=== PATIENT | female | born 1955 | race Caucasian/White ===

== ENCOUNTER 2018-06-28 07:50 | Emergency (ER) | payer OTHER ==
[~2018-06-28] VITALS: Ht 165.1 cm; Wt 127.0 kg
[2018-06-28 08:44] LABS: Urine Bacteria MANY /hpf (None Seen); Urine Blood 2+ /uL (Negative); Urine Mucus FEW (None Seen); Urine Specific Gravity 1.021 (1.001-1.035); Urine WBC 53 /hpf (0 - 5)
[2018-06-28 08:45] LABS: Basophils # (auto) 0.1 uL; Basophils % (auto) 1.4 % (0.0-2.0); Eosinophils # (auto) 0.2 uL; Eosinophils % (auto) 2.6 % (0.0-7.0); Hematocrit 42.8 % (36.0-46.0); Hemoglobin 14.3 g/dL (12.2-16.2); Lymphocytes # (auto) 1.2 uL; Lymphocytes % (auto) 15.4 % (10.0-50.0); Mean Corpuscular Hemoglobin 28.1 pg (28.0-32.0); Mean Corpuscular Hgb Conc. 33.4 g/dL (32.0-36.0); Monocytes # (auto) 0.6 uL; Monocytes % (auto) 7.8 % (0.0-12.0); Neutrophils # (auto) 5.5 uL; Neutrophils % (auto) 72.8 % (37.0-80.0); Nucleated Red Blood Cells % 0.1 %; Platelet Count (auto) 325 10^3/uL (140-450); Red Blood Cells 5.09 10^6/uL (4.0-5.20); Red Cell Distribution Width 15.2 % (11.8-14.3); White Blood Cell 7.6 10^3/uL (4.4-10.8)
[2018-06-28 09:12] LABS: Albumin 3.6 g/dL (3.4-5.0); BUN/Creatinine Ratio 19.1; Potassium 3.9 mmol/L (3.5-5.1)
[2018-06-28 09:15] LABS: Bilirubin, Total 0.4 mg/dL (0.2-1.0); Total Protein 7.9 g/dL (6.4-8.2)
[2018-06-28 09:43] VITALS: BP 126/73
[2018-06-28] MEDS ORDERED: LIDOCAINE W/ EPINEPHRINE 1 % INJ 30ML ONE (09:56)
[2018-06-28] MEDS ORDERED: cefTRIAXone SOD 1,000 MG VL IM ONE (10:00)
[2018-06-28] MEDS ORDERED: KETOROLAC TROMETH 60MG/2ML VIAL IM ONE (10:00)
[2018-06-29] MEDS ORDERED: OME20GT PO (09:24)
[2018-06-29] MEDS ORDERED: ESCI20TA PO (09:24)
[2018-06-29] MEDS ORDERED: HYDR12.56 PO (09:24)
[2018-06-29] MEDS ORDERED: LOSA-49 PO (09:24)
== END 2018-06-28 10:33 | disposition home or self-care (01) ==
LOC: ER 07:50
DX: N13.2 Hydronephrosis with renal and ureteral calculous obstruction (principal); N39.0 Urinary tract infection, site not specified; I10 Essential (primary) hypertension; G89.29 Other chronic pain; Z87.440 Personal history of urinary (tract) infections; Z90.49 Acquired absence of other specified parts of digestive tract; Z90.710 Acquired absence of both cervix and uterus
CPT/HCPCS: 36415; 74176; 80053; 81001; 85025; 93005; 96372; 99284; J0696; J1885; J2001

== ENCOUNTER 2018-07-04 16:27 | Inpatient (IN) | payer BC ==
[~2018-07-04] VITALS: Ht 165.1 cm; Wt 143.9 kg
[~2018-07-04 16:27] MED LIST: ESCI20TA PO; HYDR12.56 PO; LOSA-49 PO; OME20GT PO
[2018-07-04] MEDS ORDERED: IPRATROPIUM BROM 0.5 MG/2.5ML INH SOL HHN ONE (17:00)
[2018-07-04] MEDS ORDERED: ALBUTEROL SULF 2.5 MG/0.5ML(0.5%) NEB SOLN HHN ONE (17:00)
[2018-07-04] MEDS ORDERED: KETOROLAC TROMETH 30 MG/ML 1ML VIAL IV ONE (17:00)
[2018-07-04] MEDS ORDERED: methylPREDNISolone SOD SUCC 125 MG/2 ML VL IV ONE (17:00)
[2018-07-04] MEDS ORDERED: ACETAMINOPHEN 325 MG TAB PO ONE (17:45)
[2018-07-04 18:20] LABS: Basophils # (auto) 0 uL; Basophils % (auto) 0.8 % (0.0-2.0); Eosinophils # (auto) 0 uL; Eosinophils % (auto) 0.2 % (0.0-7.0); Hematocrit 39.8 % (36.0-46.0); Hemoglobin 13.2 g/dL (12.2-16.2); Lymphocytes # (auto) 0.8 uL; Mean Corpuscular Hemoglobin 28.3 pg (28.0-32.0); Mean Corpuscular Hgb Conc. 33.2 g/dL (32.0-36.0); Mean Corpuscular Volume 85.1 fL (80.0-100.0); Monocytes # (auto) 0.5 uL; Monocytes % (auto) 8.9 % (0.0-12.0); Neutrophils # (auto) 4.1 uL; Neutrophils % (auto) 75.1 % (37.0-80.0); Platelet Count (auto) 232 10^3/uL (140-450); Red Blood Cells 4.67 10^6/uL (4.0-5.20); Red Cell Distribution Width 15.2 % (11.8-14.3); White Blood Cell 5.4 10^3/uL (4.4-10.8)
[2018-07-04 18:31] LABS: Alanine Aminotransferase 38 U/L (13-56); Albumin 3.4 g/dL (3.4-5.0); Anion Gap 11 (5-15); Aspartate Aminotransferase 28 U/L (15-37); BUN/Creatinine Ratio 9.7; Blood Urea Nitrogen 10 mg/dL (7-18); Calcium 8.2 mg/dL (8.5-10.1); Carbon Dioxide 25 mmol/L (21-32); Chloride 105 mmol/L (98-107); GFR African American 70 mL/min; GFR Non-African American 58 mL/min; Glucose 109 mg/dL (74-106); Magnesium 1.9 mg/dL (1.6-2.6); Potassium 3.3 mmol/L (3.5-5.1); Sodium 141 mmol/L (136-145)
[2018-07-04 18:36] LABS: Alkaline Phosphatase 95 U/L (45-117); Bilirubin, Total 0.5 mg/dL (0.2-1.0); Total Protein 7.5 g/dL (6.4-8.2)
[2018-07-04] MEDS ORDERED: FUROSEMIDE 20 MG/2 ML VIAL IV ONE (23:30)
[2018-07-04] MEDS ORDERED: LEVOFLOXACIN 750MG 150 ML IV ONE (23:30)
[2018-07-04] MEDS ORDERED: POTASSIUM CHL 20 Meq TABLET PO ONE (23:30)
[2018-07-05] MEDS ORDERED: AZITHROMYCIN 500MG/ 250ML 250 ML IV ONE
[2018-07-05] MEDS ORDERED: MORPHINE SULF INJ 2 MG/ML SYRINGE 1ML IV PRN
[2018-07-05] MEDS ORDERED: POTASSIUM CHL 20 Meq TABLET PO ONE
[2018-07-05] MEDS ORDERED: ZOLPIDEM TARTRATE 5 MG TAB PO PRN
[2018-07-05] MEDS ORDERED: HYDROcodone-ACET 5/325MG TAB PO PRN
[2018-07-05] MEDS ORDERED: cefTRIAXone 1GM/50ML D5W 50 ML IV ONE
[2018-07-05] MEDS ORDERED: ONDANSETRON HCL 4 MG/2 ML VIAL IV PRN
[2018-07-05] MEDS ORDERED: ACETAMINOPHEN 500 MG TAB PO PRN
[2018-07-05] MEDS ORDERED: FUROSEMIDE 20 MG/2 ML VIAL IV ONE
[2018-07-05 02:43] VITALS: BP 122/68
[2018-07-05] MEDS: FUROSEMIDE 20 MG/2 ML VIAL IV SCH ×2 (06:00→18:16)
[2018-07-05 06:11] LABS: Basophils # (auto) 0 uL; Basophils % (auto) 0.2 % (0.0-2.0); Eosinophils # (auto) 0 uL; Hematocrit 38.1 % (36.0-46.0); Hemoglobin 12.9 g/dL (12.2-16.2); Lymphocytes # (auto) 0.5 uL; Lymphocytes % (auto) 7.5 % (10.0-50.0); Mean Corpuscular Hemoglobin 28.5 pg (28.0-32.0); Mean Corpuscular Hgb Conc. 33.8 g/dL (32.0-36.0); Mean Corpuscular Volume 84.2 fL (80.0-100.0); Monocytes # (auto) 0.2 uL; Monocytes % (auto) 2.8 % (0.0-12.0); Neutrophils # (auto) 5.5 uL; Neutrophils % (auto) 89.5 % (37.0-80.0); Platelet Count (auto) 242 10^3/uL (140-450); Red Blood Cells 4.52 10^6/uL (4.0-5.20); Red Cell Distribution Width 15.3 % (11.8-14.3); White Blood Cell 6.1 10^3/uL (4.4-10.8)
[2018-07-05 06:13] LABS: BUN/Creatinine Ratio 13.2; Calcium 7.8 mg/dL (8.5-10.1); Potassium 3.9 mmol/L (3.5-5.1)
[2018-07-05] MEDS: PANTOPRAZOLE 40 MG TAB PO SCH (06:36)
[2018-07-05] MEDS: IPRATROPIUM BROM 0.5 MG/2.5ML INH SOL NEB SCH ×4 (06:49→23:25)
[2018-07-05] MEDS: ALBUTEROL SULF 2.5 MG/0.5ML(0.5%) NEB SOLN NEB SCH ×4 (06:49→23:25)
[2018-07-05 08:51] LABS: Urine Bacteria FEW /hpf (None Seen); Urine Blood Negative /uL (Negative); Urine Mucus FEW (None Seen); Urine Specific Gravity 1.009 (1.001-1.035); Urine WBC 1 /hpf (0 - 5)
[2018-07-05] MEDS: cefTRIAXone 1GM/50ML D5W 50 ML IV SCH (09:30)
[2018-07-05] MEDS: AZITHROMYCIN 500MG/ 250ML 250 ML IV SCH (10:03)
[2018-07-05] MEDS: TAMSULOSIN HYDROCHLORIDE 0.4 MG CAP PO SCH (18:16)
[2018-07-05 20:00] VITALS: BP 129/68
[2018-07-05 22:00] VITALS: BP 114/60
[2018-07-06 05:00] VITALS: BP 129/69
[2018-07-06 06:01] LABS: Basophils # (auto) 0 uL; Basophils % (auto) 0.8 % (0.0-2.0); Eosinophils # (auto) 0.1 uL; Hematocrit 39.4 % (36.0-46.0); Hemoglobin 13.3 g/dL (12.2-16.2); Lymphocytes # (auto) 0.8 uL; Lymphocytes % (auto) 14.6 % (10.0-50.0); Mean Corpuscular Hemoglobin 28.4 pg (28.0-32.0); Mean Corpuscular Hgb Conc. 33.8 g/dL (32.0-36.0); Mean Corpuscular Volume 84.1 fL (80.0-100.0); Monocytes # (auto) 0.5 uL; Monocytes % (auto) 9.5 % (0.0-12.0); Neutrophils # (auto) 4.2 uL; Neutrophils % (auto) 74.1 % (37.0-80.0); Nucleated Red Blood Cells % 0.1 %; Platelet Count (auto) 261 10^3/uL (140-450); Red Blood Cells 4.68 10^6/uL (4.0-5.20); Red Cell Distribution Width 15.3 % (11.8-14.3); White Blood Cell 5.7 10^3/uL (4.4-10.8)
[2018-07-06] MEDS: PANTOPRAZOLE 40 MG TAB PO SCH (06:10)
[2018-07-06] MEDS: FUROSEMIDE 20 MG/2 ML VIAL IV SCH ×2 (06:11→18:51)
[2018-07-06 06:19] LABS: Anion Gap 7 (5-15); Blood Urea Nitrogen 17 mg/dL (7-18); Calcium 8.2 mg/dL (8.5-10.1); Carbon Dioxide 31 mmol/L (21-32); Chloride 105 mmol/L (98-107); Glucose 102 mg/dL (74-106); Potassium 3.1 mmol/L (3.5-5.1); Sodium 143 mmol/L (136-145)
[2018-07-06 06:26] LABS: BUN/Creatinine Ratio 17.7; GFR African American 76 mL/min; GFR Non-African American 63 mL/min
--- NOTE | 2018-07-06 07:25 | NUR ---
Open Shift Note Received report on patient, awake and lying in bed. Patient shows no signs of distress at this time. Discussed POC. Bed in lowest locked position, side rails up x2, and call light within reach. Will continue to monitor.
[2018-07-06] MEDS: IPRATROPIUM BROM 0.5 MG/2.5ML INH SOL NEB SCH ×3 (07:50→19:20)
[2018-07-06] MEDS: ALBUTEROL SULF 2.5 MG/0.5ML(0.5%) NEB SOLN NEB SCH ×3 (07:50→19:20)
[2018-07-06] MEDS: cefTRIAXone 1GM/50ML D5W 50 ML IV SCH (08:04)
[2018-07-06 08:56] VITALS: BP 106/66
[2018-07-06] MEDS: AZITHROMYCIN 500MG/ 250ML 250 ML IV SCH (10:53)
[2018-07-06 12:43] VITALS: BP 111/64
--- NOTE | 2018-07-06 16:20 | NUR ---
Dr Whittaker at Bedside Dr Whittaker at patient bedside.
[2018-07-06] MEDS ORDERED: POTASSIUM CHLORIDE 8 MEQ TAB PO ONE ×2 (16:30→19:15)
[2018-07-06 17:00] VITALS: BP 118/61
[2018-07-06] MEDS: TAMSULOSIN HYDROCHLORIDE 0.4 MG CAP PO SCH (18:51)
--- NOTE | 2018-07-06 19:23 | NUR ---
End of Shift Endorsed care to [facility] nurse Olive. Patient shows no signs of distress at this time. Bed in lowest locked position, side rails up x2, and call light within reach.
[2018-07-06 22:00] VITALS: BP 114/60
[2018-07-07] MEDS: IPRATROPIUM BROM 0.5 MG/2.5ML INH SOL NEB SCH ×5 (00:52→19:39)
[2018-07-07] MEDS: ALBUTEROL SULF 2.5 MG/0.5ML(0.5%) NEB SOLN NEB SCH ×5 (00:52→19:39)
[2018-07-07 04:41] VITALS: BP 116/65
[2018-07-07] MEDS: PANTOPRAZOLE 40 MG TAB PO SCH (06:03)
[2018-07-07] MEDS: FUROSEMIDE 20 MG/2 ML VIAL IV SCH ×2 (06:04→18:00)
--- NOTE | 2018-07-07 07:45 | NUR ---
Patient in bed, awake, oriented x4. On O2 at 2 LPM. No acute distress noted.
[2018-07-07 07:47] LABS: Basophils # (auto) 0 uL; Basophils % (auto) 0.9 % (0.0-2.0); Eosinophils # (auto) 0.1 uL; Eosinophils % (auto) 1.3 % (0.0-7.0); Hematocrit 43.8 % (36.0-46.0); Hemoglobin 14.7 g/dL (12.2-16.2); Lymphocytes # (auto) 1.1 uL; Lymphocytes % (auto) 22.4 % (10.0-50.0); Mean Corpuscular Hemoglobin 28.3 pg (28.0-32.0); Mean Corpuscular Hgb Conc. 33.5 g/dL (32.0-36.0); Mean Corpuscular Volume 84.2 fL (80.0-100.0); Monocytes # (auto) 0.6 uL; Monocytes % (auto) 11.7 % (0.0-12.0); Neutrophils # (auto) 3.3 uL; Neutrophils % (auto) 63.7 % (37.0-80.0); Platelet Count (auto) 303 10^3/uL (140-450); Red Cell Distribution Width 15.9 % (11.8-14.3); White Blood Cell 5.1 10^3/uL (4.4-10.8)
[2018-07-07 08:22] LABS: Albumin 3.4 g/dL (3.4-5.0); Calcium 8.5 mg/dL (8.5-10.1); Potassium 3.8 mmol/L (3.5-5.1)
[2018-07-07 08:25] LABS: Bilirubin, Total 0.5 mg/dL (0.2-1.0); Total Protein 7.8 g/dL (6.4-8.2)
[2018-07-07 08:43] VITALS: BP 109/68
[2018-07-07] MEDS: cefTRIAXone 1GM/50ML D5W 50 ML IV SCH (09:15)
[2018-07-07] MEDS: AZITHROMYCIN 500MG/ 250ML 250 ML IV SCH (10:19)
--- NOTE | 2018-07-07 10:34 | NUR ---
Mónica Bailey called for Urology Consult for renal stones. said he's planning to do a procedure today but patient needs Cardiology Consult for cardiac clearance.
--- NOTE | 2018-07-07 10:48 | NUR ---
Dr. Hammond came over. made aware Mónica Bailey called for Urology Consult, patient needs Cardiology Consult for cardiac clearance. Dr. Hammond ordered Cardiology Consult.
[2018-07-07 13:00] VITALS: BP 148/73
--- NOTE | 2018-07-07 13:58 | NUR ---
Dr. Hammond at bedside. Patient said she's not ready to go home yet today. Coughing noted.
[2018-07-07 17:00] VITALS: BP 143/77
[2018-07-07] MEDS: TAMSULOSIN HYDROCHLORIDE 0.4 MG CAP PO SCH (18:30)
--- NOTE | 2018-07-07 18:42 | NUR ---
Lasix IV not available as per Pharmacy.
--- NOTE | 2018-07-07 19:00 | NUR ---
OPEN SHIFT NOTE PATIENT IS ALERT AND ORIENTED X4, ON 2L NASAL CANNULA. 22 GAUGE IN RIGHT HAND IS INTACT AND PATENT. PATIENT STATES NO COMPLAINTS OF PAIN AT THIS TIME. POC DISCUSSED AND QUESTIONS ANSWERED. BED IS LOCKED IN LOWEST POSITION WITH SIDE RAILS UP X2. CALL LIGHT IS WITHIN REACH, WILL CONTINUE TO ROUND Q1HR AND PRN.
[2018-07-07 22:00] VITALS: BP 122/70
[2018-07-08] VITALS (7 sets, daily range): BP systolic 110–125; BP diastolic 65–72
[2018-07-08] MEDS: ALBUTEROL SULF 2.5 MG/0.5ML(0.5%) NEB SOLN NEB SCH ×2 (05:39→11:42)
[2018-07-08] MEDS: IPRATROPIUM BROM 0.5 MG/2.5ML INH SOL NEB SCH ×2 (05:39→11:42)
[2018-07-08] MEDS: FUROSEMIDE 20 MG/2 ML VIAL IV SCH ×2 (05:42→17:20)
[2018-07-08] MEDS: PANTOPRAZOLE 40 MG TAB PO SCH (05:43)
[2018-07-08 08:59] LABS: Basophils # (auto) 0 uL; Basophils % (auto) 1.1 % (0.0-2.0); Eosinophils # (auto) 0.1 uL; Eosinophils % (auto) 2.2 % (0.0-7.0); Hematocrit 46.7 % (36.0-46.0); Hemoglobin 15.5 g/dL (12.2-16.2); Lymphocytes # (auto) 1.2 uL; Lymphocytes % (auto) 27.2 % (10.0-50.0); Mean Corpuscular Hemoglobin 27.9 pg (28.0-32.0); Mean Corpuscular Hgb Conc. 33.3 g/dL (32.0-36.0); Mean Corpuscular Volume 83.8 fL (80.0-100.0); Monocytes # (auto) 0.5 uL; Monocytes % (auto) 11.9 % (0.0-12.0); Neutrophils # (auto) 2.6 uL; Neutrophils % (auto) 57.6 % (37.0-80.0); Nucleated Red Blood Cells % 0.1 %; Platelet Count (auto) 296 10^3/uL (140-450); Red Blood Cells 5.57 10^6/uL (4.0-5.20); Red Cell Distribution Width 15.2 % (11.8-14.3); White Blood Cell 4.4 10^3/uL (4.4-10.8)
--- NOTE | 2018-07-08 08:59 | NUR ---
PT REPORTS THAT SHE IS DOING FINE AND DOES NOT NEED P.T.
[2018-07-08 09:15] LABS: BUN/Creatinine Ratio 16.9; Calcium 8.9 mg/dL (8.5-10.1); Potassium 3.2 mmol/L (3.5-5.1)
[2018-07-08] MEDS: cefTRIAXone 1GM/50ML D5W 50 ML IV SCH (09:34)
--- NOTE | 2018-07-08 09:45 | NUR ---
New IV line started on the right wrist, 22 gauge, in one attempt, intact and patent. Patient able to tolerate it. Previous IV line on the right hand, 22 gauge, pressure noted when flushed with NS, IV line removed, IV catheter intact, pressure dressing applied.
[2018-07-08] MEDS: AZITHROMYCIN 500MG/ 250ML 250 ML IV SCH (10:33)
--- NOTE | 2018-07-08 12:00 | NUR ---
Nutrition Assessment Notes please see attached link for complete assessment Est. Needs ABW [id number] kcal (17-20 kcal/kgBW), 79-99 gms pro (0.8-1.0gms/kgBW r/t judy jackson). Will continue to monitor pertinent labs and reassess nutrient needs prn Addendum: 07/08/18 at [address] Amended: Links added.
[2018-07-08] MEDS ORDERED: POTASSIUM CHL 10 Meq TABLET PO ONE (15:00)
--- NOTE | 2018-07-08 17:18 | NUR ---
Discharge instructions given as ordered. Encourage to follow up with PMD as instructed. All questions and concerns addressed. Patient verbalized understanding. Medication reconciliation form completed and copy given to patient. IV removed with catheter intact, pressure dressing applied. Telemetry unit returned to [facility]. Patient taken to vehicle via wheelchair with all personal belongings, accompanied by staff and family member. No distress noted at time of departure.
[2018-07-08] MEDS: TAMSULOSIN HYDROCHLORIDE 0.4 MG CAP PO SCH (17:21)
== END 2018-07-08 17:18 | disposition home or self-care (01) | DRG 682 ==
LOC: EDBD 16:27 → ER 16:29 → TELE 07-05 00:21 → TELE-WESTW 07-05 19:39
PROVIDERS: ADMIT Nurse Practitioner Family; ATTEND Internal Medicine
DX: N17.0 Acute kidney failure with tubular necrosis (principal); I50.41 Acute combined systolic (congestive) and diastolic (congestive) heart failure; J18.1 Lobar pneumonia, unspecified organism; I13.0 Hypertensive heart and chronic kidney disease with heart failure and stage 1 through stage 4 chronic kidney disease, or unspecified chronic kidney disease; J45.901 Unspecified asthma with (acute) exacerbation; N20.2 Calculus of kidney with calculus of ureter; Z68.43 Body mass index [BMI] 50.0-59.9, adult; E66.9 Obesity, unspecified; K21.9 Gastro-esophageal reflux disease without esophagitis; R09.1 Pleurisy; I70.90 Unspecified atherosclerosis; F32.9 Major depressive disorder, single episode, unspecified; E87.6 Hypokalemia; N18.9 Chronic kidney disease, unspecified; Z87.442 Personal history of urinary calculi; Z90.49 Acquired absence of other specified parts of digestive tract; Z90.710 Acquired absence of both cervix and uterus; Z79.899 Other long term (current) drug therapy; Z88.2 Allergy status to sulfonamides
CPT/HCPCS: 36415; 71045; 80048; 80053; 81001; 83735; 83880; 84443; 84484; 85025; 87040; 87081; 87086; 93005; 94640; 94761; 96365; 96367; 96375; G0378; J0696; J1885; J1956